=== PATIENT | male | born 1965 | race Caucasian/White ===

== ENCOUNTER → 2023-04-22 | Emergency (ER) | payer SELFPAY ==
[~2023-04-22] MED LIST: FLUORESCEIN SODIUM 1 MG/WRAP ONE; TETRACAINE HCL 0.5% 4ML OPTH ONE
--- OUTSIDE RECORDS SUMMARY | 2023-04-22 07:53 | XMS REPORT | Continuity of Care Document ---
Author Name Unknown Address [address] [facility] [address] th[address] Address [address] [facility] 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 Hand Name Role Phone Unavailable Unavailable Unavailable Encounters Start Date/Time End Date/Time Encounter Type Admission Type Attending Clinicians [facility] Care Department Encounter ID Source 2023-03-29 14:24:47 2023-03-29 14:24:47 Outpatient SFA [id number] [id number] Alfred Lama 2022-11-30 10:03:55 2022-11-30 10:03:55 Outpatient SFA [id number] [id number] Alfred Lama 2022-10-16 08:44:40 2022-10-16 08:44:40 Outpatient SFA [id number] [id number] Alfred Lama 2022-04-17 08:01:47 2022-04-17 08:01:47 Outpatient SFA [id number] [id number] Alfred Lama 2022-01-30 10:53:04 2022-01-30 10:53:04 Outpatient SFA SFA [id number] Alfred Lama Results Test Description Test Time Test Comments Results Result Co mments Source LIPID [id number] 04:13:15* Test Item Value Reference Range Interpretation Comme nts CHOLESTEROL (test code = 2210) 211 MG/DL <200 H TRIGLYCERIDES (test code = 2232) 187 MG/DL <150 H HDL CHOLESTEROL (test code = 2220) 39 MG/DL >39 L CALC LDL CHOL (test code = 2237) 140 MG/DL <100 H NOTE: CALCULATED LDL IS BASED ON CHRIS-PETTY METHOD WHICHINCLUDES ADJUSTABLE TRIGLYCERIDE:VLDL CHOLESTEROL RATIO.THIS FACTOR VARIES BY MEASURED TRIGLYCERIDE AND NON-HDLCHOLESTEROL CONCENTRATIONS WITH INCREASED CALCULATED LDL SEENIN HIGHER TRIGLYCERIDE OR LOWER NON-HDL SPECIMENS. FOR MOREINFORMATION, SEE CLIENT ANNOUNCEMENT AT [email or web address] RISK RATIO LDL/HDL (test code = 2238) 3.59 RATIO <3.55 H UNLESS OTHERW ISE INDICATED, ALL TESTING PERFORMED AT [facility], [facility]. [address] [place] [address] HIM SPECIALISTS: WINNIE CURRAN M.D. CLIA NUMBER [id number] [place]. [id number] VITAMIN D, 25 [id number] 05:49:23* Test Item Value Reference Range Interpretation Comme nts VITAMIN D, 25 OH (test code = 4958) 25 NG/ML SEE BELOW L NOTE: 25-HYDR OXYVITAMIN D ASSAY INCLUDES 25-HYDROXYVITAMIN D2 AND D3. METHODOLOGY IS CHEMILUMINESCENT IMMUNOASSAY. INTERPRETIVE RANGES PEDIATRIC (<17 YEARS) . . . . . . . . . . . NG/ML 20-100ADULT: INSUFFICIENT . . . . . . . . . . . . . . NG/ML <20 SUBOPTIMAL . . . . . . . . . . . . . . . NG/ML 20-29 OPTIMAL . . . . . . . . . . . . . . . . . NG/ML 30-100 UNLESS OTHERWISE INDICATED, [facility]. [address] [place] [address] HIM SPECIALISTS: MANDY MCCAIN M.D. CLIA NUMBER [id number] [place] [id number] LIPID [id number] 04:37:17* Test Item Value Reference Range Interpretation Comme nts CHOLESTEROL (test code = 2210) 188 MG/DL <200 TRIGLYCERIDES (test code = 2232) 89 MG/DL <150 HDL CHOLESTEROL (test code = 2220) 40 MG/DL >39 CALC LDL CHOL (test code = 2237) 129 MG/DL <100 H NOTE: CALCULATED LDL IS BASED ON CHRIS-PETTY METHOD WHICHINCLUDES ADJUSTABLE TRIGLYCERIDE:VLDL CHOLESTEROL RATIO.THIS FACTOR VARIES BY MEASURED TRIGLYCERIDE AND NON-HDLCHOLESTEROL CONCENTRATIONS WITH INCREASED CALCULATED LDL SEENIN HIGHER TRIGLYCERIDE OR LOWER NON-HDL SPECIMENS. FOR MOREINFORMATION, SEE CLIENT ANNOUNCEMENT AT [email or web address] /[email or web address] RISK RATIO LDL/HDL (test code = 2238) 3.23 RATIO <3.55 VITAMIN D, 25 [id number] 03:07:18* Test Item Value Reference Range Interpretation Comme nts VITAMIN D, 25 OH (test code = 4958) 21 NG/ML SEE BELOW L NOTE: 25-HYDR OXYVITAMIN D ASSAY INCLUDES 25-HYDROXYVITAMIN D2 AND D3. METHODOLOGY IS CHEMILUMINESCENT IMMUNOASSAY. INTERPRETIVE RANGES PEDIATRIC (<17 YEARS) . . . . . . . . . . . NG/ML 20-100ADULT: INSUFFICIENT . . . . . . . . . . . . . . NG/ML <20 SUBOPTIMAL . . . . . . . . . . . . . . . NG/ML 20-29 OPTIMAL . . . . . . . . . . . . . . . . . NG/ML 30-100 UNLESS OTHERWISE INDICATED, ALL [facility] [address] [place] [address] HIM SPECIALISTS: MANDY MCCAIN M.D. CLIA NUMBER [id number] [place]. [id number] CBC W/AUTO DIFF WITH [id number] 03:39:29* Test Item Value Reference Range Interpretation Comme nts WBC (test code = 1001) 11.3 K/UL 3.5-11.0 H RBC (test code = 1002) 4.81 M/UL 4.50-6.10 HEMOGLOBIN (test code = 1003) 14.5 G/DL 13.5-17.0 HEMATOCRIT (test code = 1004) 42.3 % 40.0-51.0 MCV (test code = 1005) 87.9 fL 80.0-99.0 MCH (test code = 1006) 30.1 PG 25.0-33.0 MCHC (test code = 1007) 34.3 G/DL 31.0-36.0 RDW (test code = 1038) 13.1 % 11.5-15.0 NEUTROPHILS (test code = 1008) 61.6 % LYMPHOCYTES (test code = 1010) 27.7 % MONOCYTES (test code = 1011) 8.0 % EOSINOPHILS (test code = 1012) 1.7 % BASOPHILS (test code = 1013) 0.6 % IMMATURE GRANULOCYTES (test code = 1036) 0.4 % NUCLEATED RBCS (test code = 1065) 0.0 /100 WBC'S See_Comment [Automated [employer] ge] The system which generated this result transmitted reference range: 0.0. The reference range was not used to interpret this result as normal/abnormal. PLATELET COUNT (test code = 1015) 250 K/UL 130-400 ABSOLUTE NEUTROPHILS (test code = 1066) 6.95 K/UL 1.50-7.50 ABSOLUTE LYMPHOCYTES (test code = 1067) 3.12 K/UL 1.00-4.00 ABSOLUTE MONOCYTES (test code = 1068) 0.90 K/UL 0.20-1.00 ABSOLUTE EOSINOPHILS (test code = 1040) 0.19 K/UL 0.00-0.50 ABSOLUTE BASOPHILS (test code = 1069) 0.07 K/UL 0.00-0.20 ABS IMMATURE GRANULOCYTES (test code = 1020) 0.05 K/UL 0.00-0.10 ABS NUCLEATED RBCS (test code = 74177) 0.00 K/UL 0.00-0.11 LIPID [id number] 03:14:59* Test Item Value Reference Range Interpretation Comme nts CHOLESTEROL (test code = 2210) 229 MG/DL <200 H TRIGLYCERIDES (test code = 2232) 177 MG/DL <150 H HDL CHOLESTEROL (test code = 2220) 39 MG/DL >39 L CALC LDL CHOL (test code = 2237) 157 MG/DL <100 H NOTE: CALCULATED LDL IS BASED ON CHRIS-PETTY METHOD WHICHINCLUDES ADJUSTABLE TRIGLYCERIDE:VLDL CHOLESTEROL RATIO.THIS FACTOR VARIES BY MEASURED TRIGLYCERIDE AND NON-HDLCHOLESTEROL CONCENTRATIONS WITH INCREASED CALCULATED LDL SEENIN HIGHER TRIGLYCERIDE OR LOWER NON-HDL SPECIMENS. FOR MOREINFORMATION, SEE CLIENT ANNOUNCEMENT AT [email or web address] RISK RATIO LDL/HDL (test code = 2238) 4.03 RATIO <3.55 H COMPREHENSIVE METABOLIC [id number] 03:14:59* Test Item Value Reference Range Interpretation Comme nts GLUCOSE (test code = 2217) 82 MG/DL 70-99 BUN (test code = 2208) 14 MG/DL 6-20 CREATININE (test code = 2214) 1.04 MG/DL 0.80-1.40 eGFR (2020 CKD-EPI) (test code = ) 84 ML/MIN/1.73 >60 CALC BUN/CREAT (test code = 2234) 13 RATIO 6-28 SODIUM (test code = 2230) 141 MEQ/L 133-146 POTASSIUM (test code = 2227) 4.6 MEQ/L 3.5-5.4 CHLORIDE (test code = 2214) 104 MEQ/L 95-107 CARBON DIOXIDE (test code = 2205) 24 MEQ/L 19-31 CALCIUM (test code = 2208) 9.8 MG/DL 8.5-10.5 PROTEIN, TOTAL (test code = 2228) 7.7 G/DL 6.1-8.3 ALBUMIN (test code = 2200) 4.5 G/DL 3.5-5.2 CALC GLOBULIN (test code = 2239) 3.2 G/DL 1.9-3.7 CALC A/G RATIO (test code = 2233) 1.4 RATIO 1.0-2.6 BILIRUBIN, TOTAL (test code = 2206) 0.3 MG/DL See_Comment [Automated me ssage] The system which generated this result transmitted reference range: <=1.2. The reference range was not used to interpret this result as normal/abnormal. ALKALINE PHOSPHATASE (test code = 2203) 94 U/L 40-123 AST (test code = 2217) 18 U/L 9-50 ALT (test code = 2218) 16 U/L 5-50 UNLESS OTHERWISE INDICATED, ALL TESTING PERFORMED [facility] [address] [place] [id number] HIM SPECIALISTS: Tommie SPEARSIA NUMBER [id number] [facility]. [id number]
--- NOTE | 2023-04-22 09:56 | ER ---
Nurse's Notes [facility] Name: Narciso Edwards Age: 58 yrs Sex: Male : 1965 Arrival Date: 04/22/2023 Time: 07:50 Bed 14 Private MD: Diagnosis: Retinal detachment with giant retinal tear, right eye Presentation: 04/22 08:01 Chief complaint: Patient states: started a week to 10 days ago , every time I back out iw of my driveway I had flashes of light on outer field of vision in right eye , 2 days ago he had a black line across bottom of visual field. Coronavirus screen: At this time, the client does not indicate any symptoms associated with coronavirus-19. Ebola Screen: Patient negative for fever greater than or equal to 101.5 degrees Fahrenheit, and additional compatible Ebola Virus Disease symptoms Patient denies exposure to infectious person. Patient denies travel to an Ebola-affected area in the 21 days before illness onset. No symptoms or risks identified at this time. Initial Sepsis Screen: Does the patient meet any 2 criteria? No. Patient's initial sepsis screen is negative. Does the patient have a suspected source of infection? No. Patient's initial sepsis screen is negative. Risk Assessment: Do you want to hurt yourself or someone else? Patient reports no desire to harm self or others. Onset of symptoms was April 12, 2023. 08:01 Method Of Arrival: Ambulatory iw 08:01 Acuity: NAIN 3 iw Historical: - Allergies: 08:03 No Known Allergies; iw - Home Meds: 08:03 amlodipine oral [Active]; iw - PMHx: 08:03 Hypertensive disorder; Hypercholesterolemia; iw - Immunization history:: Adult Immunizations not up to date. - Social history:: Smoking status: Patient/guardian denies using tobacco. Screenin:19 [facility] ED Fall Risk Assessment (Adult) History of falling in the last 3 months, ap3 including since admission No falls in past 3 months (0 pts). Abuse screen: Denies threats or abuse. Nutritional screening: No deficits noted. Tuberculosis screening: No symptoms or risk factors identified. Assessment: 08:18 General: Appears in no apparent distress. Behavior is cooperative, anxious. Pain: ap3 Denies pain. Neuro: Level of Consciousness is awake, alert, obeys commands, Oriented to person, place, time, situation. Cardiovascular: Patient's skin is warm and dry. Respiratory: Airway is patent Respiratory effort is even, unlabored, Respiratory pattern is regular, symmetrical. EENT: Reports black "floaters", black lines, and a "translucent black dome" in vision of right eye. Vital Signs: 08:01 BP 145 / 104; Pulse 89; Resp 16; Pulse Ox 99% on R/A; Weight 106.59 kg; Height 6 ft. 0 iw in. ; 10:18 BP 131 / 96; Pulse 85; Resp 16; Pulse Ox 99% ; Pain 0/10; cm10 08:01 Body Mass Index 31.87 (106.59 kg, 182.88 cm) iw 10:18 Pain Scale: Adult cm10 Visual Acuity: 08:28 Left Eye Visual acuity 20/200, ; Right Eye Visual acuity 20/30, ; Both Eyes Visual ap3 acuity 20/30; Without Lenses; ED Course: 07:53 Patient arrived in ED. ra3 07:56 Ad Stevens MD is Attending Physician. ec2 08:03 Triage completed. iw 08:04 Arm band placed on. iw 08:19 Patient has correct armband on for positive identification. Bed in low position. Call ap3 light in reach. Pulse ox on. NIBP on. 08:28 Avani Layton, JULIAN is Primary Nurse. ap3 08:36 Provider at bedside performing ultrasound of right eye. ap3 10:27 No provider procedures requiring assistance completed. Patient did not have IV access cm10 during this emergency room visit. 10:28 Provided Education on: ER process and procedures. . cm10 Administered Medications: 08:35 Drug: Tetracaine Ophthalmic Drops 0.5 % 1 drops Ophthalmic once {Note: by Dr. Stevens.} ap3 Route: Ophthalmic; Site: right eye; Medication: 08:19 VIS not applicable for this client. ap3 Outcome: 09:56 Discharge ordered by . ec2 10:27 Discharged to [facility] ER via POV cm10 10:27 Condition: good 10:27 Discharge instructions given to patient, Instructed on Driving to [facility] for further care. 10:28 Patient left the ED. cm10 Signatures: Carmen Starr RN RN Avani Layton RN RN ap3 Kellee Koehler RN RN cm10 Ad Stevens MD MD ec2 Carol Skinner ra3
--- NOTE | 2023-04-22 09:56 | EDPHYS ---
Physician Documentation [facility] Name: Narciso Edwards Age: 58 yrs Sex: Male : 1965 Arrival Date: 04/22/2023 Time: 07:50 Bed 14 Private MD: ED Physician Ad Stevens HPI: 04/22 08:12 This 58 yrs old Male presents to ER via Ambulatory with complaints of Eye ec2 Problem. 08:12 Patient arrives today due to concern for right eye visual field issues. States that he ec2 has been having issues with his eye for the past 10 days. States that he is having flashers and floaters, states that he also feels like curtain is drawn over his eye as he has some blackness in a portion of the upper eye. Patient reports no trauma, history of right eye cataract surgery, denies any redness or discharge, denies any pain of the globe.. Historical: - Allergies: 08:03 No Known Allergies; iw - Home Meds: 08:03 amlodipine oral [Active]; iw - PMHx: 08:03 Hypertensive disorder; Hypercholesterolemia; iw - Immunization history:: Adult Immunizations not up to date. - Social history:: Smoking status: Patient/guardian denies using tobacco. ROS: 08:12 Constitutional: as per hpi ec2 Exam: 08:12 Constitutional: GEN: NAD Head: atraumatic Eyes: EOMI, no erythema or discharge ec2 appreciated, intact pupillary response to direct and consensual light Ears: External ears are normal. CV: regular rate LUNGS: no respiratory distress ABD: non-distended SKIN: no evidence of rashes MSK: no evidence of trauma NEURO: moves all extremities equally Vital Signs: 08:01 BP 145 / 104; Pulse 89; Resp 16; Pulse Ox 99% on R/A; Weight 106.59 kg; Height 6 ft. 0 iw in. ; 10:18 BP 131 / 96; Pulse 85; Resp 16; Pulse Ox 99% ; Pain 0/10; cm10 08:01 Body Mass Index 31.87 (106.59 kg, 182.88 cm) iw 10:18 Pain Scale: Adult cm10 Visual Acuity: 08:28 Left Eye Visual acuity 20/200, ; Right Eye Visual acuity 20/30, ; Both Eyes Visual ap3 acuity 20/30; Without Lenses; MDM: 08:05 Patient medically screened. ec2 08:13 Data reviewed: vital signs. ED course: Patient arrives today for evaluation of right ec2 eye issues. Examination remarkable for eye findings as noted above. Will obtain visual acuities, will obtain eye pressures, will also perform ultrasound of the eye to evaluate for pathology. Currently considering process such as vitreous hemorrhage, retinal detachment, low suspicion for glaucoma. . 08:58 ED course: I performed ocular pressures which showed a pressure at 11 on the right ec2 side, I also performed an ultrasound of the globe that showed concern for retinal detachment, no evidence of vitreous hemorrhage.. 09:00 ED course: My concern for retinal attachment, will attempt to transfer the patient, ec2 while attempting to transfer the patient I will also reach out to our local statistical assistant.. 09:42 ED course: [facility] ophthalmology declined stating this does not require emergent ec2 transfer. I will continue attempting to transfer the patient.. 09:54 ED course: I discussed the case with on-call ophthalmology at [facility] who agreed ec2 with my concern, recommended immediate transfer and to keep n.p.o. for possible intervention today. I updated the patient regarding the plan, he will go via POV under the care of his .. 09:57 ED course: I discussed the case with the fellow at [facility].. ec2 04/22 08:14 Order name: Eye Tray; Complete Time: 08:28 ec2 04/22 08:14 Order name: Fluoresene Opth strip; Complete Time: :28 ec2 04/22 08:14 Order name: Visual Acuity; Complete Time: 08:28 ec2 Administered Medications: 08:35 Drug: Tetracaine Ophthalmic Drops 0.5 % 1 drops Ophthalmic once {Note: by Dr. Stevens.} ap3 Route: Ophthalmic; Site: right eye; Disposition Summary: 04/22/23 09:56 Discharge Ordered Condition: Stable ec2 Diagnosis - Retinal detachment with giant retinal tear, right eye ec2 Followup: ec2 - With: Emergency Department - When: Upon discharge from the Emergency Department - Reason: [facility] Discharge Instructions: - Discharge Summary Sheet ec2 - Retinal Detachment ec2 Forms: - SBAR form em1 - Medication Reconciliation Form ec2 - Thank You Letter ec2 - Antibiotic Education ec2 - Prescription Opioid Use ec2 - Patient Portal Instructions ec2 - Leadership Thank You Letter ec2 Signatures: Carmen Starr RN Avani Baird RN RN ap3 Ad Stevens MD MD ec2 Corrections: (The following items were deleted from the chart) 09:27 09:26 ED course: My concern for retinal attachment, will attempt to transfer the ec2 patient, while attempting to transfer the patient I will also reach out to our local statistical assistant.. ec2
[2023-04-22 11:15] VITALS: BP 131/96; O2SAT 99
== END ==
LOC: ER 07:50
DX: H33.031 Retinal detachment with giant retinal tear, right eye (principal); I10 Essential (primary) hypertension
CPT/HCPCS: 99283

== ENCOUNTER 2024-01-11 12:34 | Emergency (ER) | payer SELFPAY ==
[2024-01-11] MEDS ORDERED: ETOMIDATE 20 MG/10 ML VIAL IV ONE ×2 (12:35→13:22)
[2024-01-11] MEDS ORDERED: ONDANSETRON 4 MG/2 ML VIAL ONE (12:38)
[2024-01-11] MEDS ORDERED: HYDROMORPHONE HCL 1 MG/ML INJ ONE ×2 (12:38→12:51)
--- OUTSIDE RECORDS SUMMARY | 2024-01-11 12:39 | XMS REPORT | Continuity of Care Document ---
Author Name Unknown Address [address] [facility] [place] [address] [facility] thconnect Address [address] [facility] [place] [address] Care Team Providers Care Teachers' Aide Name Role Phone Ochoa CORINE [facility] Primary Care Physician SEBASTIEN MATA Attending Clinician Unavailable Sebastien Mata MD Attending Clinician [phone] RUDI GUSTAFSON Attending Clinician Unavailable Rudi Gustafson MD Attending Clinician [phone] RUDI GUSTAFSON Admitting Clinician Unavailable Rudi Gustafson MD Admitting Clinician [phone] Problems Condition Name Condition Details Condition Category Status Onset Date Resolution Date Last Treatment Date Treating Clinician Comments Source Right retinal detachment Right retinal detachment Disease Active 2022-05 00:00: 00 [facility] Obesity (BMI 30-39.9) Obesity (BMI 30-39.9) Disease Active 2022-05 00:00: 00 [facility] GI bleed GI bleed Disease Active 11-20 00:00: 00 [facility] Allergies, Adverse Reactions, Alerts Allergy Name Allergy Type Status Severity Reaction(s) Onset Date Inactive Date Treating Clinician Comments Source NO KNOWN ALLERGIE S Drug Class Active [facility] Social History Social Habit Start Date Stop Date Quantity Comments Source [facility] of tobacco use Cigarette Smoker [facility] History of Social function 2023-07-13 00:00:00 2023-07-13 00:00:00 [facility] Tobacco use and exposure 2021-11-21 00:00:00 2021-11-21 00:00:00 User of smokeless tobacco [facility] Sex assigned at 1965 00:00:00 1965 00:00:00 [facility] Smoking Status Start Date Stop Date Source Smokes tobacco daily 2021-11-21 00:00:00 [facility] Medications Ordered Medication Name Filled Medication Name Start Date Stop Date Current Medication? Ordering Clinician Indication Dosage Frequency Signature (SIG) Comments Components Source amlodipine 10 mg tablet 10-27 00:00: 00 Yes 1mg Alfred Lama ketorolac 0.5 % ophthalmic solution 09-13 00:00: 00 Yes [id number] 1[drp] Place 1 Drop in right eye in the morning and 1 Drop at noon and 1 Drop in the evening. [facility] ketorolac 0.5 % ophthalmic solution 07-26 00:00: 00 09-13 00:00 :00 No 1[drp] Place 1 Drop in right eye 4 (four) times daily. [facility] ketorolac 0.5 % ophthalmic solution 07-15 00:00: 00 Yes 1[drp] Place 1 Drop in right eye 4 (four) times daily. [facility] ketorolac 0.5 % ophthalmic solution 07-12 00:00: 00 09-13 00:00 :00 No [id number] 1[drp] Place 1 Drop in right eye 4 (four) times daily. [facility] TAKE 1 TABLET DAILY. 2022-05 00:00: 00 Yes 10 Alfred Lama TAKE 1 CAPSULE TWICE DAILY. 2022-05 00:00: 00 Yes 300 Alfred Lama lactated ringers IV infusion 1,000 mL 2022-05 04:30: 00 Yes 1000mL at 75 mL/hr, 1,000 mL, IV Infusion, CONTINUOUS , Starting on Brandy 04/22/23 at 2230, Until Discontinu ed, Routine, PACU [facility] HYDROcodone -acetaminop hen (NORCO 5) 5-325 mg tablet 1 tablet 2022-05 04:30: 00 04-23 04:35 :00 No 1{tbl} 1 tablet, Oral, ONCE, 1 dose, On Wed04/22/23 at 2230, Routine, PACU [facility] HYDROcodone -acetaminop hen (NORCO 5) 5-325 mg tablet 1 tablet 2022-05 04:16: 11 Yes 1{tbl} 1 tablet, Oral, PRN, 1 dose, Starting on Wed04/22/23 at 2216, Until Discontinu ed, Routine, Pain (scale 7-10), [facility] ibuprofen (MOTRIN IB) tablet 200 mg 2022-05 04:16: 11 Yes 200mg 200 mg, Oral, PRN, 1 dose, Starting on Brandy 04/22/23 at 2216, Until Discontinu ed, Routine, Pain (scale 4-6), [facility] acetaminoph en (TYLENOL) tablet 500 mg 2022-05 04:16: 11 Yes 500mg 500 mg, Oral, PRN, 1 dose, Starting on Wed04/22/23 at 2216, Until Discontinu ed, Routine, Pain (scale 1-3), [facility] HYDROmorpho ne (DILAUDID) injection 0.2 mg 2022-05 04:16: 06 Yes .2mg 0.2 mg, Slow IV Push, Q5MIN PRN, 10 doses, Starting on Wed04/22/23 at 2216, Until Discontinu ed, Routine, Pain (scale 7-10), PACU
Us e approved by (Faculty): PACU USE -ANESTHESI A SERVICE-HY DROMORPHON E INJECTIONS [facility] FENTanyl PF (SUBLIMAZE (PF)) injection 25 mcg 2022-05 04:16: 06 Yes 25ug 25 mcg, Slow IV Push, Q5MIN PRN, 4 doses, Starting on Wed04/22/23 at 2216, Until Discontinu ed, Routine, Pain (scale 4-6), PACU [facility] proMETHazin e (PHENERGAN) 12.5 mg in NS 50 mL IV piggyback (CNR) 2022-05 04:16: 06 Yes 12.5mg 12.5 mg, IV Piggyback, at 200 mL/hr Administer over 15 Minutes, PRN, 1 dose, Starting on Brandy 04/22/23 at 6, Until Discontinu ed, Routine, Nausea and Vomiting (N/V), PACU [facility] gentamicin in NS 80 mg/100 mL RTU IV piggyback 2022-05 02:49: 00 04-23 04:15 :10 No CONTINUOUS PRN, Starting on Brandy 04/22/23 at 2048, Until Brandy 04/22/23 at 2214, Administer over 30 Minutes, Intra-op [facility] VISCOAT 0.5 ml (VISCOAT) 4-3 % (40-30 mg/mL) injection 2022-05 02:48: 00 04-23 04:15 :10 No PRN, Starting on Brandy 04/22/23 at 2047, Until Brandy 04/22/23 at 2214, Routine, Intra-op [facility] triamcinolo ne acetonide (KENALOG) injection 2022-05 02:48: 00 04-23 04:15 :10 No PRN, Starting on Brandy 04/22/23 at 2047, Until Brandy 04/22/23 at 2214, Routine, Intra-op [facility] povidone-io dine (BETADINE) 5 % ophthalmic drops 2022-05 02:48: 00 04-23 04:15 :10 No PRN, Starting on Brandy 04/22/23 at 2047, Until Brandy 04/22/23 at 2214, Routine, Intra-op [facility] neomycin-po lymyxin-dex amethasone (MAXITROL) 3.5 mg/g-10,000 unit/g-0.1 % ophthalmic ointment 2022-05 02:48: 00 04-23 04:15 :10 No PRN, Starting on Brandy 04/22/23 at 2048, Until Brandy 04/22/23 at 2215, Routine, Intra-op [facility] methylpredn isolone sod succ (SOLU-MEDRO L) injection 2022-05 02:47: 00 04-23 04:15 :10 No PRN, Starting on Brandy 04/22/23 at 2047, Until Brandy 04/22/23 at 2215, Routine, Intra-op [facility] Hyaluronida se, Human Recomb. (HYLENEX) 150 Units, bupivacaine (preserv free) 0.5% (SENSORCAIN E MPF) 5 mL, lidocaine PF 2% (XYLOCAINE- MPF) 5 mL injection 2022-05 02:47: 00 04-23 04:15 :10 No PRN, Starting on Brandy 04/22/23 at 7, Intra-op [facility] EPINEPHrine (PF) 1:1,000 (1 mg/mL) (ADRENALIN (PF)) injection 2022-05 02:47: 00 04-23 04:15 :10 No PRN, Starting on Brandy 04/22/23 at 2047, Until Brandy 04/22/23 at 2215, Routine, Intra-op [facility] ceFAZolin (ANCEF) injection 2022-05 02:46: 00 04-23 04:15 :10 No PRN, Starting on Brandy 04/22/23 at 2046, Until Brandy 04/22/23 at 221, CHERYL, Intra-op [facility] balanced salt soln no.2 irrig. (BSS) ophthalmic solution 2022-05 02:46: 00 04-23 04:15 :10 No PRN, Starting on Brandy 04/22/23 at 2046, Until Brandy 04/22/23 at 221, Routine, Intra-op [facility] balanced salt soln no.1 irrig. (BSS PLUS) ophthalmic solution 2022-05 02:45: 00 04-23 04:15 :10 No PRN, Starting on Brandy 04/22/23 at 2045, Until Brandy 04/22/23 at 2215, Routine, Intra-op [facility] gabapentin 300 mg capsule 2022-05 23:32: 29 Yes 300mg Take 300 mg by mouth in the morning and 300 mg at noon and 300 mg in the evening. [facility] moxifloxaci n (VIGAMOX) 0.5 % ophthalmic drops 2022-05 00:00: 00 Yes [id number] 1[drp] Place 1 Drop in right eye 4 (four) times daily. [facility] prednisoLON E acetate 1 % ophthalmic suspension drops 2022-05 00:00: 00 Yes [id number] 1[drp] Place 1 Drop in right eye 4 (four) times daily. [facility] TAKE DIRECTED. 2022-05 00:00: 00 Yes Alfred Lama TAKE 10 ML 4-6 HOURS NEEDED -31 00:00: 00 04-27 00:00 :00 No [id number] Alfred Lama TAKE 1 TABLET AT BEDTIME. 30 00:00: 00 04-27 00:00 :00 No 10 Alfred Lama TAKE 1 CAPSULE TWICE DAILY. -16 00:00: 00 Yes 300 Alfred Lama TAKE 1 TABLET DAILY. -16 00:00: 00 Yes 10 Alfred Lama TAKE 1 CAPSULE 3 TIMES DAILY. 3-13 00:00: 00 04-27 00:00 :00 No 300 Alfred Lama TAKE 1 TABLET DAILY. 2021-05 2-16 00:00: 00 04-27 00:00 :00 No 10 Alfred Lama TAKE 1 TABLET DAILY. 2021-05 2-15 00:00: 00 04-27 00:00 :00 No Alfred Lama TAKE 1 CAPSULE 3 TIMES DAILY. 2021-05 2-15 00:00: 00 04-27 00:00 :00 No Alfred Lama peg-electro lyte soln 236-22.74-6 .74 -5.86 gram solution 11-21 00:00: 00 Yes [id number] Take as directed before colonoscop y [facility] Dose Unknown -14 00:00: 00 Yes Alfred Lama Dose Unknown - 00:00: 00 Yes Alfred Lama TAKE 1 CAPSULE 3 TIMES DAILY. - 00:00: 00 Yes Alfred Lama Dose Unknown -17 00:00: 00 Yes Alfred Lama Dose Unknown - 00:00: 00 Yes Alfred Lama Dose Unknown 6- 00:00: 00 Yes Alfred Lama celecoxib 200 mg capsule 08-10 00:00: 00 Yes 1mg Alfred Lama gabapentin 300 mg capsule 08-10 00:00: 00 Yes 1mg Alfred Lama tizanidine 4 mg capsule -10 00:00: 00 Yes 1mg Alfred Lama Vital Signs Vital Name Observation Time Observation Value Comments S ource Body weight 2023-07-13 19:14:00 106.595 kg [facility] BMI 2023-07-13 19:14:00 31.87 kg/m2 [facility] Body weight 2023-04-30 20:24:00 106.595 kg [facility] BMI 2023-04-30 20:24:00 31.87 kg/m2 [facility] Body weight 2023-04-23 19:49:00 106.595 kg [facility] BMI 2023-04-23 19:49:00 31.87 kg/m2 [facility] Systolic blood pressure 2023-04-23 05:15:00 130 mm[Hg] [place] [facility] Diastolic blood pressure 2023-04-23 05:15:00 89 mm[Hg] [place] [facility] Heart rate 2023-04-23 05:15:00 86 /min [facility] Respiratory rate 2023-04-23 05:15:00 16 /min [facility] Oxygen saturation in Arterial blood by Pulse oximetry 2023-04-23 05:15:00 95 /min [facility] Body temperature 2023-04-23 04:15:00 36.5 Noy [facility] Body weight 2023-04-22 18:31:00 106.595 kg [facility] BMI 2023-04-22 18:31:00 31.87 kg/m2 [facility] Systolic blood pressure 2023-04-23 05:15:00 130 mm[Hg] [facility] Diastolic blood pressure 2023-04-23 05:15:00 89 mm[Hg] [facility] Heart rate 2023-04-23 05:15:00 86 /min [facility] Respiratory rate 2023-04-23 05:15:00 16 /min [facility] Oxygen saturation in Arterial blood by Pulse oximetry 2023-04-23 05:15:00 95 /min [facility] Body temperature 2023-04-23 04:15:00 36.5 Noy [facility] Body weight 2023-04-22 18:31:00 106.595 kg [facility] BMI 2023-04-22 18:31:00 31.87 kg/m2 [facility] BP Systolic 2023-10-28 17:58:00 Step hen F Kelby BP Diastolic 2023-10-28 17:58:00 Jeffery phen F Kelby Weight Measured 2023-10-28 17:58:00 Alfred Sarabjit Lama Height Measured 2023-10-28 17:58:00 Alfred Sarabjit Lama Body Temperature 2023-10-28 17:58:00 Alfred F Kelby Heart Rate 2023-10-28 17:58:00 Zoraida en F Kelby Respiratory Rate 2023-10-28 17:58:00 Alfred Sarabjit Lama BP Systolic 2023-04-24 09:21:00 142 mm[Hg] Step hen F Kelby BP Diastolic 2023-04-24 09:21:00 87 mm[Hg] Jeffery phen Sarabjit Lama Weight Measured 2023-04-24 09:21:00 241.20 pounds Alfredhaile Lama Height Measured 2023-04-24 09:21:00 70.00 inches Alfrdehaile Lama Body Temperature 2023-04-24 09:21:00 98.40 degrees Alfred F Kelby Heart Rate 2023-04-24 09:21:00 69.00 /min Zoraida en F Kelby Respiratory Rate 2023-04-24 09:21:00 Alfred F Kelby BP Systolic 2023-03-29 14:33:00 139 mm[Hg] Step hen F Kelby BP Diastolic 2023-03-29 14:33:00 84 mm[Hg] Jeffery phen F Kelby Weight Measured 2023-03-29 14:33:00 244.00 pounds Alfred F Kelby Height Measured 2023-03-29 14:33:00 70.00 inches Alfred F Kelby Body Temperature 2023-03-29 14:33:00 98.60 degrees Alfred F Kelby Heart Rate 2023-03-29 14:33:00 89.00 /min Zoraida en F Kelby Respiratory Rate 2023-03-29 14:33:00 19.00 /min Alfred F Kelby BP Systolic 2022-11-30 10:09:00 124 mm[Hg] Step hen F Kelby BP Diastolic 2022-11-30 10:09:00 82 mm[Hg] Jeffery phen F Kelby Weight Measured 2022-11-30 10:09:00 239.40 pounds Alfred F Kelby Height Measured 2022-11-30 10:09:00 70.00 inches Alfred F Kelby Body Temperature 2022-11-30 10:09:00 98.20 degrees Alfred F Kelby Heart Rate 2022-11-30 10:09:00 92.00 /min Zoraida en F Eklby Respiratory Rate 2022-11-30 10:09:00 18.00 /min Alfred F Kelby BP Systolic 2022-10-16 08:50:00 138 mm[Hg] Step hen F Kelby BP Diastolic 2022-10-16 08:50:00 80 mm[Hg] Jeffery phen F Kelby Weight Measured 2022-10-16 08:50:00 243.80 pounds Alfred F Kelby Height Measured 2022-10-16 08:50:00 70.00 inches Alfred F Kelby Body Temperature 2022-10-16 08:50:00 98.30 degrees Alfred F Kelby Heart Rate 2022-10-16 08:50:00 75.00 /min Zoraida en F Kelby Respiratory Rate 2022-10-16 08:50:00 18.00 /min Alfred F Kelby BP Systolic 2022-04-17 08:12:00 127 mm[Hg] Step hen F Kelby BP Diastolic 2022-04-17 08:12:00 85 mm[Hg] Jeffery phen F Kelby Weight Measured 2022-04-17 08:12:00 218.20 pounds Alfred F Kelby Height Measured 2022-04-17 08:12:00 70.00 inches Alfred F Kelby Body Temperature 2022-04-17 08:12:00 98.60 degrees Alfred F Kelby Heart Rate 2022-04-17 08:12:00 82.00 /min Zoraida en F Kelby Respiratory Rate 2022-04-17 08:12:00 18.00 /min Alfred F Kelby BP Systolic 2022-01-30 11:07:00 126 mm[Hg] Step hen F Kelby BP Diastolic 2022-01-30 11:07:00 87 mm[Hg] Jeffery phen F Kelby Weight Measured 2022-01-30 11:07:00 215.00 pounds Alfred F Kelby Height Measured 2022-01-30 11:07:00 70.00 inches Alfred F Kelby Body Temperature 2022-01-30 11:07:00 98.20 degrees Alfred F Kelby Heart Rate 2022-01-30 11:07:00 95.00 /min Zoraida en F Kelby Respiratory Rate 2022-01-30 11:07:00 18.00 /min Alfred F Kelby BP Systolic 2022-01-30 10:21:00 189 mm[Hg] Step hen F Kelby BP Diastolic 2022-01-30 10:21:00 128 mm[Hg] Jeffery phen F Kelby Weight Measured 2022-01-30 10:21:00 280.80 pounds Alfred F Kelby Height Measured 2022-01-30 10:21:00 70.00 inches Alfred F Kelby Body Temperature 2022-01-30 10:21:00 98.00 degrees Alfred F Kelby Heart Rate 2022-01-30 10:21:00 92.00 /min Zoraida en F Kelby Respiratory Rate 2022-01-30 10:21:00 Alfred F Kelby BP Systolic 2022-01-23 11:15:00 136 mm[Hg] Step hen F Kelby BP Diastolic 2022-01-23 11:15:00 93 mm[Hg] Jeffery phen F Kelby Weight Measured 2022-01-23 11:15:00 216.40 pounds Alfred F Kelby Height Measured 2022-01-23 11:15:00 70.00 inches Alfred F Kelby Body Temperature 2022-01-23 11:15:00 98.30 degrees Alfred F Kelby Heart Rate 2022-01-23 11:15:00 92.00 /min Zoraida en F Kelby Respiratory Rate 2022-01-23 11:15:00 16.00 /min Alfred F Kebly BP Systolic 2022-01-16 10:40:00 142 mm[Hg] Step hen F Kelby BP Diastolic 2022-01-16 10:40:00 100 mm[Hg] Jeffery phen F Kelby Weight Measured 2022-01-16 10:40:00 216.00 pounds Alfred F Kelby Height Measured 2022-01-16 10:40:00 70.00 inches Alfred Lama Body Temperature 2022-01-16 10:40:00 98.00 degrees Alfred F Kelby Heart Rate 2022-01-16 10:40:00 92.00 /min Zoraida en F Kelby Respiratory Rate 2022-01-16 10:40:00 18.00 /min Alfred Sarabjit Lama Procedures Procedure Date / Time Performed Performing Clinician Source OCT, RETINA - OU - BOTH EYES 2023-09-14 19:45:58 Sebastien Mata [facility] OCT, RETINA - OU - BOTH EYES 2023-07-14 00:12:32 Sebastien Mata [facility] OCT, RETINA - OU - BOTH EYES 2023-05-28 22:27:00 Sebastien Mata [facility] PARS PLANA VITRECTOMY 2023-04-23 02:02:00 Kaylyn Mata [facility] ENDOLASER PHOTOCOAGULATION 2023-04-23 02:02:00 Sebastien Mata [facility] SCLERAL BUCKLE PLACEMENT 2023-04-23 02:02:00 Jb Mata [facility] FLUID/AIR/GAS EXCHANGE 2023-04-23 02:02:00 Donnie Mata [facility] CONSENT/REFUSAL FOR DIAGNOSIS AND TREATMENT 2023-04-22 18:25:32 Doctor Unassigned, [place] [facility] CONSENT/REFUSAL FOR DIAGNOSIS AND TREATMENT 2023-04-22 18:25:32 Doctor Unassigned, [place] [facility] Encounters Start Date/Time End Date/Time Encounter Type Admission Type Attending [facility] Care Department Encounter ID Source 2024-01-11 13:45:00 2024-01-11 13:45:00 Outpatient SEBASTIEN FRANKLIN [facility] [id number] [facility] 2023-11-23 07:59:37 2023-11-23 07:59:37 Outpatient S[facility] [id number] Alfred Lama 2023-10-28 17:57:56 2023-10-28 17:57:56 Outpatient [facility] [id number] Alfred Lama 2023-10-28 00:00:00 2023-10-28 00:00:00 Outpatient Visit [facility] [id number] Alfred Lama 2023-09-14 13:45:00 2023-09-14 14:55:39 Outpatient SEBASTIEN FRANKLIN [facility] [id number] [facility] 2023-09-14 13:45:00 2023-09-14 14:55:39 Office Visit Sebastien Mata [facility] .840.114 350.1.13.10 [id number] [id number] [facility] 2023-07-15 00:00:00 2023-07-15 00:00:00 Telephone Sebastien Mata [facility] 1.840.114 350.1.13.10 4.2.7.2.686 [id number] [facility] 2023-07-13 14:00:00 2023-07-13 16:09:46 Outpatient SEBASTIEN FRANKLIN [facility] [id number] [facility] 2023-07-13 14:00:00 2023-07-13 16:09:46 Office Visit Sebastien Mata [facility] 1.114 350.1.13.10 4.2.7.2.686 [id number] [facility] 2023-05-28 15:00:00 2023-05-28 16:39:26 Outpatient R SEBASTIEN MATA [facility] [id number] [facility] 2023-05-28 15:00:00 2023-05-28 16:39:26 Office Visit Sebastien Mata [facility] 1.114 350.1.13.10 4.2.7.2.686 [id number] [facility] 2023-04-30 14:15:00 2023-04-30 15:26:51 Outpatient R SEBASTIEN MATA [facility] [id number] [facility] 2023-04-30 14:15:00 2023-04-30 15:26:51 Office Visit Sebastien Mata [facility] AND [facility] 1.114 350.1.13.10 4.2.7.2.686 [id number] [facility] 2023-04-24 09:11:44 2023-04-24 09:11:44 Outpatient CHRISTIANO [facility] [id number] Alfred Lama 2023-04-23 13:30:00 2023-04-23 14:30:59 Outpatient R SEBASTIEN MATA [facility] [id number] [facility] 2023-04-23 13:30:00 2023-04-23 14:30:59 Office Visit Sebastien Mata [facility] 1.114 350.1.13.10 4.2.7.2.686 [id number] [facility] 2023-04-22 19:30:00 2023-04-22 23:45:00 Surgery Sebastien Mata [facility] 1.2.840.114 350.1.13.10 4.2.7.2.686 [id number] [facility] 2023-04-22 12:32:00 2023-04-22 23:30:00 Outpatient X RUDI GUSTAFSON [facility] [id number] [facility] 2023-04-22 12:32:00 2023-04-22 23:30:00 Emergency [facility] 1.2.840.114 350.1.13.10 4.2.7.2.686 [id number] [facility] 2023-03-29 14:24:47 2023-03-29 14:24:47 Outpatient [facility] [id number] Alfred Lama 2022-11-30 10:03:55 2022-11-30 10:03:55 Outpatient [facility] [id number] Alfred Lama 2022-10-16 08:44:40 2022-10-16 08:44:40 Outpatient [facility] [id number] Alfred Lama 2022-04-17 08:01:47 2022-04-17 08:01:47 Outpatient [facility] SFA [id number] Alfred Lama 2022-01-30 10:53:04 2022-01-30 10:53:04 Outpatient [facility] SFA [id number] Alfred Lama Results Test Description Test Time Test Comments Results Result Co mments Source COMPREHENSIVE METABOLIC [id number] 05:23:01* Test Item Value Reference Range Interpretation Comme nts GLUCOSE (test code = 2217) 101 MG/DL 70-99 H BUN (test code = 2208) 14 MG/DL 6-20 CREATININE (test code = 2214) 1.01 MG/DL 0.80-1.40 eGFR (2020 CKD-EPI) (test code = ) 86 ML/MIN/1.73 >60 CALC BUN/CREAT (test code = 2234) 14 RATIO 6-28 SODIUM (test code = 2230) 139 MEQ/L 133-146 POTASSIUM (test code = 2227) 4.8 MEQ/L 3.5-5.4 CHLORIDE (test code = 2214) 104 MEQ/L 95-107 CARBON DIOXIDE (test code = 2205) 23 MEQ/L 19-31 CALCIUM (test code = 2208) 9.4 MG/DL 8.5-10.5 PROTEIN, TOTAL (test code = 2228) 7.3 G/DL 6.1-8.3 ALBUMIN (test code = 2200) 4.3 G/DL 3.5-5.2 CALC GLOBULIN (test code = 2239) 3.0 G/DL 1.9-3.7 CALC A/G RATIO (test code = 2233) 1.4 RATIO 1.0-2.6 BILIRUBIN, TOTAL (test code = 2206) 0.3 MG/DL <=1.2 ALKALINE PHOSPHATASE (test code = 2203) 104 U/L 40-123 AST (test code = 2217) 16 U/L 9-50 ALT (test code = 2218) 20 U/L 5-50 UNLESS OTHERWISE INDICATED, ALL TESTING PERFORMED AT [facility] [address] [place] [address] BAND SCROLL SAW OPERATOR: WINNIE CURRAN M.D. CLIA NUMBER [id number] [facility] [place]. [id number] LIPID [id number] 01:26:14* Test Item Value Reference Range Interpretation Comme nts CHOLESTEROL (test code = 2209) 197 MG/DL <200 TRIGLYCERIDES (test code = 2231) 120 MG/DL <150 HDL CHOLESTEROL (test code = 2219) 41 MG/DL >39 CALC LDL CHOL (test code = 2236) 133 MG/DL <100 H NOTE: CALCULATED LDL IS BASED ON CHRIS-PETTY METHOD WHICHINCLUDES ADJUSTABLE TRIGLYCERIDE:VLDL CHOLESTEROL RATIO.THIS FACTOR VARIES BY MEASURED TRIGLYCERIDE AND NON-HDLCHOLESTEROL CONCENTRATIONS WITH INCREASED CALCULATED LDL SEENIN HIGHER TRIGLYCERIDE OR LOWER NON-HDL SPECIMENS. FOR MOREINFORMATION, SEE CLIENT ANNOUNCEMENT AT [email or web address] RISK RATIO LDL/HDL (test code = 2238) 3.24 RATIO <3.55 COMPREHENSIVE METABOLIC [id number] 01:26:14* Test Item Value Reference Range Interpretation Comme nts GLUCOSE (test code = 2217) 95 MG/DL 70-99 BUN (test code = 2208) 12 MG/DL 6-20 CREATININE (test code = 2214) 1.05 MG/DL 0.80-1.40 eGFR (2020 CKD-EPI) (test code = 36664) 82 ML/MIN/1.73 >60 CALC BUN/CREAT (test code = 2235) 11 RATIO 6-28 SODIUM (test code = 2231) 140 MEQ/L 133-146 POTASSIUM (test code = 2228) 4.0 MEQ/L 3.5-5.4 CHLORIDE (test code = 2215) 104 MEQ/L 95-107 CARBON DIOXIDE (test code = 2206) 23 MEQ/L 19-31 CALCIUM (test code = 2209) 9.3 MG/DL 8.5-10.5 PROTEIN, TOTAL (test code = 2229) 7.4 G/DL 6.1-8.3 ALBUMIN (test code = 2201) 4.4 G/DL 3.5-5.2 CALC GLOBULIN (test code = 2240) 3.0 G/DL 1.9-3.7 CALC A/G RATIO (test code = 2234) 1.5 RATIO 1.0-2.6 BILIRUBIN, TOTAL (test code = 2207) 0.3 MG/DL <=1.2 ALKALINE PHOSPHATASE (test code = 2204) 100 U/L 40-123 AST (test code = 2218) 12 U/L 9-50 ALT (test code = 2219) 13 U/L 5-50 UNLESS OTHERWISE INDICATED, ALL TESTING PERFORMED AT [facility] [address] [place] [id number] BAND SCROLL SAW OPERATOR: WINNIE CURRAN M.D. CLIA NUMBER [id number] [facility] [place]. [id number] LIPID [id number] 00:00:00* Test Item Value Reference Range Interpretation Comme nts CHOLESTEROL (test code = 2210) 197 MG/DL TRIGLYCERIDES (test code = 2232) 120 MG/DL HDL CHOLESTEROL (test code = 2220) 41 MG/DL CALC LDL CHOL (test code = 2237) 133 MG/DL RISK RATIO LDL/HDL (test cod e = 2238) 3.24 RATIO Alfred LamaCOMPREHENSIVE METABOLIC [id number] 00:00:00* Test Item Value Reference Range Interpretation Comme nts GLUCOSE (test code = 2217) 95 MG/DL BUN (test code = 2208) 12 MG/DL CREATININE (test code = 2214) 1.05 MG/DL eGFR (2020 CKD-EPI) (test co de = 17514) 82 ML/MIN/1.73 CALC BUN/CREAT (test code = 2235) 11 RATIO SODIUM (test code = 2231) 140 MEQ/L POTASSIUM (test code = 2228) 4.0 MEQ/L CHLORIDE (test code = 2215) 104 MEQ/L CARBON DIOXIDE (test code = 2206) 23 MEQ/L CALCIUM (test code = 2209) 9.3 MG/DL PROTEIN, TOTAL (test code = 2229) 7.4 G/DL ALBUMIN (test code = 2201) 4.4 G/DL CALC GLOBULIN (test code = 2240) 3.0 G/DL CALC A/G RATIO (test code = 2234) 1.5 RATIO BILIRUBIN, TOTAL (test code = 2207) 0.3 MG/DL ALKALINE PHOSPHATASE (test code = 2204) 100 U/L AST (test code = 2218) 12 U/L ALT (test code = 2219) 13 U/L Alfred LamaCOMPREHENSIVE METABOLIC [id number] 04:13:15* Test Item Value Reference Range Interpretation Comme nts GLUCOSE (test code = 2217) 92 MG/DL 70-99 BUN (test code = 2208) 11 MG/DL 6-20 CREATININE (test code = 2214) 0.99 MG/DL 0.80-1.40 eGFR (2020 CKD-EPI) (test code = 21579) 89 ML/MIN/1.73 >60 CALC BUN/CREAT (test code = 2235) 11 RATIO 6-28 SODIUM (test code = 2231) 140 MEQ/L 133-146 POTASSIUM (test code = 2228) 4.4 MEQ/L 3.5-5.4 CHLORIDE (test code = 2215) 104 MEQ/L 95-107 CARBON DIOXIDE (test code = 2206) 22 MEQ/L 19-31 CALCIUM (test code = 2209) 9.5 MG/DL 8.5-10.5 PROTEIN, TOTAL (test code = 2229) 7.5 G/DL 6.1-8.3 ALBUMIN (test code = 2201) 4.6 G/DL 3.5-5.2 CALC GLOBULIN (test code = 2240) 2.9 G/DL 1.9-3.7 CALC A/G RATIO (test code = 2234) 1.6 RATIO 1.0-2.6 BILIRUBIN, TOTAL (test code = 2207) 0.3 MG/DL See_Comment [Automated me ssage] The system which generated this result transmitted reference range: <=1.2. The reference range was not used to interpret this result as normal/abnormal. ALKALINE PHOSPHATASE (test code = 220) 99 U/L 40-123 AST (test code = 2218) 18 U/L 9-50 ALT (test code = 2219) 19 U/L 5-50 LIPID [id number] 04:13:15* Test Item Value Reference Range Interpretation [...] SPECIMENS. FOR MOREINFORMATION, SEE CLIENT ANNOUNCEMENT AT [email or web address] /CalcLDL-C RISK RATIO LDL/HDL (test code = 2238) 3.59 RATIO <3.55 H UNLESS OTHERW ISE INDICATED, ALL TESTING PERFORMED AT [facility] [address] [facility] [place] [address] BAND SCROLL SAW OPERATOR: WINNIE CURRAN M.D. CLIA NUMBER [id number] [facility] [place]. [id number] COMPREHENSIVE METABOLIC [id number] 00:00:00* Test Item Value Reference Range Interpretation Comme nts GLUCOSE (test code = 2216) 92 MG/DL BUN (test code = 2207) 11 MG/DL CREATININE (test code = 2214) 0.99 MG/DL eGFR (2020 CKD-EPI) (test co de = 73065) 89 ML/MIN/1.73 CALC BUN/CREAT (test code = 2235) 11 RATIO SODIUM (test code = 2231) 140 MEQ/L POTASSIUM (test code = 2228) 4.4 MEQ/L CHLORIDE (test code = 2215) 104 MEQ/L CARBON DIOXIDE (test code = 2206) 22 MEQ/L CALCIUM (test code = 2209) 9.5 MG/DL PROTEIN, TOTAL (test code = 2229) 7.5 G/DL ALBUMIN (test code = 2201) 4.6 G/DL CALC GLOBULIN (test code = 2240) 2.9 G/DL CALC A/G RATIO (test code = 2234) 1.6 RATIO BILIRUBIN, TOTAL (test code = 2207) 0.3 MG/DL ALKALINE PHOSPHATASE (test code = 2204) 99 U/L AST (test code = 2218) 18 U/L ALT (test code = 2219) 19 U/L Alfred LamaLIPID [id number] 00:00:00* Test Item Value Reference Range Interpretation Comme nts CHOLESTEROL (test code = 2210) 211 MG/DL TRIGLYCERIDES (test code = 2232) 187 MG/DL HDL CHOLESTEROL (test code = 2220) 39 MG/DL CALC LDL CHOL (test code = 2237) 140 MG/DL RISK RATIO LDL/HDL (test cod e = 2238) 3.59 RATIO Alfred LamaVITAMIN D, 25 [id number] 05:49:23* Test Item Value Reference Range Interpretation [...] 30-100 UNLESS OTHERWISE INDICATED, ALL TESTING PERFORMED [facility] [address] [place] [address] BAND SCROLL SAW OPERATOR: MANDY MCCAIN M.D. [place] NUMBER [id number] [facility] [place]. [id number] LIPID [id number] 04:37:17* Test Item Value Reference Range Interpretation [...] SPECIMENS. FOR MOREINFORMATION, SEE CLIENT ANNOUNCEMENT AT [email or web address]://[email or web address] /CalcLDL-C RISK RATIO LDL/HDL (test code = 2238) 3.23 RATIO <3.55 LIPID [id number] 00:00:00* Test Item Value Reference Range Interpretation Comme nts CHOLESTEROL (test code = 2210) 188 MG/DL TRIGLYCERIDES (test code = 2232) 89 MG/DL HDL CHOLESTEROL (test code = 2220) 40 MG/DL CALC LDL CHOL (test code = 2237) 129 MG/DL RISK RATIO LDL/HDL (test cod e = 2238) 3.23 RATIO Alfred LamaVITAMIN D, 25 [id number] 00:00:00* Test Item Value Reference Range Interpretation Comme nts VITAMIN D, 25 OH (test code = 4958) 25 NG/ML Aflred LamaVITAMIN D, 25 [id number] 03:07:18* Test Item Value Reference Range Interpretation [...] 30-100 UNLESS OTHERWISE INDICATED, ALL TESTING PERFORMED [facility] [address] [place] [address] BAND SCROLL SAW OPERATOR: MANDY MCCAIN M.D. [place] NUMBER [id number] [facility] [place]. [id number] VITAMIN D, 25 [id number] 00:00:00* Test Item Value Reference Range Interpretation Comme [facility] VITAMIN D, 25 OH (test code = 4958) 21 NG/ML Alfred Whipple [facility] W/AUTO DIFF WITH [id number] 03:39:29* Test Item Value Reference Range Interpretation [...] = 1065) 0.0 /100 WBC'S See_Comment [Automated messa ge] The system which generated this result [...] 0.00-0.10 ABS NUCLEATED RBCS (test code = 36755) 0.00 K/UL 0.00-0.11 LIPID [id number] 03:14:59* Test Item Value Reference Range Interpretation [...] SPECIMENS. FOR MOREINFORMATION, SEE CLIENT ANNOUNCEMENT AT [email or web address]://www.[email or web address] /CalcLDL-C RISK RATIO LDL/HDL (test code = 2238) 4.03 RATIO <3.55 H COMPREHENSIVE METABOLIC [id number] 03:14:59* Test Item Value Reference Range Interpretation Comme nts GLUCOSE (test code = 2217) 82 MG/DL 70-99 BUN (test code = 2208) 14 MG/DL 6-20 CREATININE (test code = 2214) 1.04 MG/DL 0.80-1.40 eGFR (2020 CKD-EPI) (test code = 25260) 84 ML/MIN/1.73 >60 CALC BUN/CREAT (test code = 2235) 13 RATIO 6-28 SODIUM (test code = 223) 141 MEQ/L 133-146 POTASSIUM (test code = 2228) 4.6 MEQ/L 3.5-5.4 CHLORIDE (test code = 2215) 104 MEQ/L 95-107 CARBON DIOXIDE (test code = 2206) 24 MEQ/L 19-31 CALCIUM (test code = 2209) 9.8 MG/DL 8.5-10.5 PROTEIN, TOTAL (test code = 2229) 7.7 G/DL 6.1-8.3 ALBUMIN (test code = 2201) 4.5 G/DL 3.5-5.2 CALC GLOBULIN (test code = 2240) 3.2 G/DL 1.9-3.7 CALC A/G RATIO (test code = 2234) 1.4 RATIO 1.0-2.6 BILIRUBIN, TOTAL (test code = 2207) 0.3 MG/DL See_Comment [Automated me ssage] The system which generated this result transmitted reference range: <=1.2. The reference range was not used to interpret this result as normal/abnormal. ALKALINE PHOSPHATASE (test code = 2203) 94 U/L 40-123 AST (test code = 2218) 18 U/L 9-50 ALT (test code = 221) 16 U/L 5-50 UNLESS OTHERWISE INDICATED, ALL TESTING PERFORMED [facility] [address] [place] [address] BAND SCROLL SAW OPERATOR: MANDY MCCAIN M.D. CLIA NUMBER [id number] [facility] [place]. [id number] CBC W/AUTO [id number] 00:00:00* Test Item Value Reference Range Interpretation Comme nts WBC (test code = 1001) 11.3 K/UL RBC (test code = 1002) 4.81 M/UL HEMOGLOBIN (test code = 1003) 14.5 G/DL HEMATOCRIT (test code = 1004) 42.3 % MCV (test code = 1005) 87.9 fL MCH (test code = 1006) 30.1 PG MCHC (test code = 1007) 34.3 G/DL RDW (test code = 1038) 13.1 % NEUTROPHILS (test code = 1008) 61.6 % LYMPHOCYTES (test code = 1010) 27.7 % MONOCYTES (test code = 1011) 8.0 % EOSINOPHILS (test code = 1012) 1.7 % BASOPHILS (test code = 1013) 0.6 % IMMATURE GRANULOCYTES (test code = 1036) 0.4 % NUCLEATED RBCS (test code = 1065) 0.0 /100WBC'S PLATELET COUNT (test code = 1015) 250 K/UL ABSOLUTE NEUTROPHILS (test c ode = 1066) 6.95 K/UL ABSOLUTE LYMPHOCYTES (test c ode = 1067) 3.12 K/UL ABSOLUTE MONOCYTES (test cod e = 1068) 0.90 K/UL ABSOLUTE EOSINOPHILS (test c ode = 1040) 0.19 K/UL ABSOLUTE BASOPHILS (test cod e = 1069) 0.07 K/UL ABS IMMATURE GRANULOCYTES (t est code = 1020) 0.05 K/UL ABS NUCLEATED RBCS (test cod e = 74015) 0.00 K/UL Alfred Whipple AustinLIPID [id number] 00:00:00* Test Item Value Reference Range Interpretation Comme nts CHOLESTEROL (test code = 2210) 229 MG/DL TRIGLYCERIDES (test code = 2232) 177 MG/DL HDL CHOLESTEROL (test code = 2220) 39 MG/DL CALC LDL CHOL (test code = 2237) 157 MG/DL RISK RATIO LDL/HDL (test cod e = 2238) 4.03 RATIO Alfred LamaCOMPREHENSIVE METABOLIC [id number] 00:00:00* Test Item Value Reference Range Interpretation Comme nts GLUCOSE (test code = 2217) 82 MG/DL BUN (test code = 2208) 14 MG/DL CREATININE (test code = 2214) 1.04 MG/DL eGFR (2020 CKD-EPI) (test co de = 56362) 84 ML/MIN/1.73 CALC BUN/CREAT (test code = 2235) 13 RATIO SODIUM (test code = 2231) 141 MEQ/L POTASSIUM (test code = 2228) 4.6 MEQ/L CHLORIDE (test code = 2215) 104 MEQ/L CARBON DIOXIDE (test code = 2206) 24 MEQ/L CALCIUM (test code = 2209) 9.8 MG/DL PROTEIN, TOTAL (test code = 2229) 7.7 G/DL ALBUMIN (test code = 2201) 4.5 G/DL CALC GLOBULIN (test code = 2240) 3.2 G/DL CALC A/G RATIO (test code = 2234) 1.4 RATIO BILIRUBIN, TOTAL (test code = 2207) 0.3 MG/DL ALKALINE PHOSPHATASE (test code = 2204) 94 U/L AST (test code = 2218) 18 U/L ALT (test code = 2219) 16 U/L Alfred F AustinCOMPREHENSIVE METABOLIC [id number] 00:00:00* Test Item Value Reference Range Interpretation Comme nts GLUCOSE (test code = 2217) 86 MG/DL BUN (test code = 2208) 11 MG/DL CREATININE (test code = 2214) 1.00 MG/DL eGFR AMER. (test cod e = 16032) 98 ML/MIN/1.73 eGFR NON- AMER. (test code = 31935) 84 ML/MIN/1.73 CALC BUN/CREAT (test code = 2235) 11 RATIO SODIUM (test code = 2231) 138 MEQ/L POTASSIUM (test code = 2228) 5.4 MEQ/L CHLORIDE (test code = 2215) 100 MEQ/L CARBON DIOXIDE (test code = 2206) 19 MEQ/L CALCIUM (test code = 2209) 9.2 MG/DL PROTEIN, TOTAL (test code = 2229) 7.6 G/DL ALBUMIN (test code = 2201) 3.9 G/DL CALC GLOBULIN (test code = 2240) 3.7 G/DL CALC A/G RATIO (test code = 2234) 1.1 RATIO BILIRUBIN, TOTAL (test code = 2207) 0.2 MG/DL ALKALINE PHOSPHATASE (test code = 2204) 93 U/L AST (test code = 2218) 17 U/L ALT (test code = 2219) 12 U/L Alfred LamaRHEUMATOID FACTOR, [id number] 00:00:00* Test Item Value Reference Range Interpretation Comme nts RHEUMATOID FACTOR, QUANT (te st code = 3502) <10 IU/ML Alfred LamaCBC W/AUTO [id number] 00:00:00* Test Item Value Reference Range Interpretation Comme nts WBC (test code = 1001) 12.0 K/UL RBC (test code = 1002) 4.11 M/UL HEMOGLOBIN (test code = 1003) 11.6 G/DL HEMATOCRIT (test code = 1004) 34.8 % MCV (test code = 1005) 84.7 fL MCH (test code = 1006) 28.2 PG MCHC (test code = 1007) 33.3 G/DL RDW (test code = 1038) 12.5 % NEUTROPHILS (test code = 1008) 71.8 % LYMPHOCYTES (test code = 1010) 19.4 % MONOCYTES (test code = 1011) 6.1 % EOSINOPHILS (test code = 1012) 2.3 % BASOPHILS (test code = 1013) 0.4 % PLATELET COUNT (test code = 1015) 377 K/UL Alfred Lama History and Physical Notes Date/Time Note Provider Source 2023-04-22 16:52:34 Lyric Edwards 1965, 58 year old, /White, male [id number] Admit type: DSU Attending Surgeon:Dr. Cecille MD Fellow Surgeon: Dr. Penny Reilly Chief Complaint: Blurry vision OD History of Present Illness: Causing difficulty Driving, Reading, Watching TV ROS: NA FH: NA Past Social Hx: NA No past medical history on file. No past surgical history on file. No current facility-administered medications for this encounter. Current Outpatient Medications Medication Sig Dispense Refill peg-electrolyte soln 236-22.74-6.74 -5.86 gram solution Take as directed before colonoscopy 4000 mL 0 gabapentin 300 mg capsule Take 300 mg by mouth in the morning and 300 mg at noon and 300 mg in the evening. Patient has no known allergies. Physical Exam: HEENT: see progress note Blood pressure 139/84, pulse 72, temperature 36.6 ?C (97.9 ?F), temperature source Oral, resp. rate 16, weight 106.6 kg (235 lb), SpO2 98 %. Bleeding tendencies: No Pertinent physical abnormalities: NA Impression/Diagnosis: Retinal detachment OD Treatment Plan/Procedure: SB/PPV/AFX/EL /GAS OD Anesthesia Type: GA Holdover from Clinic: [facility] patient: No Hemodialysis: NO Risks, benefits, and alternatives discussed with patient who voices understanding and wishes to proceed. - Risks/benefits/alternatives of surgery discussed with patient - It was explained to patient that as with any intraocular surgery, there is a risk of complications including but not limited to hemorrhage/bleeding in any part of the eye, infection, cataract formation, glaucoma, retinal detachment, retinal tears, need for additional surgeries, loss of vision and loss of the eye - informed consent was discussed with the patient, including: condition, proposed care, treatments and services, alternative forms of treatment, and risks of no treatment; details discussed around the procedures to be used, and the risks and hazards involved, potential benefits, and side effects of the patient s proposed care, treatment, and services; the likelihood of the patient achieving his/her goals; and any potential problems that might occur during recuperation - reasonable alternatives also discussed with the patient s proposed care, treatment, and services; the discussion encompasses risks, benefits, and side effects related to the alternative and risks related to not receiving the proposed care, treatment, and services - all concerns were addressed and all questions were answered - the patient voiced understanding and provided a written consent to proceed with surgery Consent obtained: Written consent was obtained from patient Physician: GINO Jordan ER INSERTING MACHINE OPERATOR Associated attestation - Sebastien Mata MD - 04/22/2023 7:47 PM PRIMER INSERTING MACHINE OPERATOR RETINA ATTENDING ATTESTATION: I personally examined the patient on 04/22/[address] Francis's findings, assessments, and plans and the indication for surgery and will proceed with surgery as planned. Sebastien Mata MD 04/22/2023 7:46 PM [facility] Notes Date/Time Note Provider Source Alfred Fonseca [facility]2024-03-15 14:25:31 Called pt and pt informed me that the pharmacy didn't have the 3ml bottle of Ketorolac but has the 5ml bottle so I have sent a new prescription for 5ml and informed pt. Galina Toro 07/16/2023 2:28 PM [id number] 12:22:25 [facility] calling back again for an update on medication. Please advise [facility] [id number] - [place] [facility] [id number] 13:50:[address] Cecille Su 07/15/2023 1:51 PM [facility]Sub[facility] [id number] 12:20:37 Lyric Edwards is a 58 year old male [phone] (home) Copied from [facility] #[id number]. Topic: Clinical - Medical Advice >> Jul 15, 2023 12:18 PM Patient Bar Host wrote: Pt states the manufacture of ketorolac 0.5 % ophthalmic solution is out of stock. Pt states he has been waiting on this medication. Can another medication be called in that is available. Please advise [facility] [id number] [address] [place] [facility]esaySub[facility] & [facility] [id number] 19:27:16 Pt to OR at this time via OR transporter in stretcher accompanied by with belongings. 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 Pt changing into gown. Family member reports will take home all belongings. [facility]2023-12-21 19:12:41 Nurse Report Report given to Maria C JORDAN. Chief complaint, assessment findings, infusion verify and orders reviewed. Plan of care discussed at bedside with patient and both nurses. Patient/family members verbalized understanding. Emeli Armstrong RN [facility] Emeli Armstrong [place] [address]-12-21 17:18:10 Optho updated this nurse on patient care plan. Patient will be posted for surgery today hoping for 1930. If not patient will be admitted and surgery performed in the morning. Patient advised on admit plan. Gown and socks at bedside. Patient arauz not want to change until it is necessary. at bedside. [address]12-21 16:10:00 Patient remains in the Eye room at this time. [address]12-21 16:00:00 Patient rounding complete at this time. Patient is laying in bed, NAD noted, VSS. Call light within reach, side rail up for safety, bed in low position and locked. Will continue to monitor the patient. Awaiting disposition. [address]12-21 15:14:21 Patient notified of diet order per provider. [address]12-21 13:10:07 Optho consult at bedside. Patient ambulatory to the eye room. [address]12-21 12:35:16 Optho returned page and aware of patient arrival ER INSERTING MACHINE OPERATOR [facility] [id number] 12:30:22 Lyric Edwards is a 58 year old male presenting to ED transferred from [place] accepted by optho for possible retinal detachment. Patient reports to R eye. Optho paged in triage. Patient to [place] for further eval ER INSERTING MACHINE OPERATOR Reyna Jones [facility]
--- NOTE | 2024-01-11 13:47 | ER ---
Nurse's Notes [facility] Name: Narciso Edwards Age: 58 yrs Sex: Male : 1965 Arrival Date: 01/11/2024 Time: 12:34 Bed 2 Private MD: Diagnosis: Left shoulder dislocation, moderate sedation, shoulder reduction by physician Presentation: 01/10 12:42 Chief complaint: Patient states: stepped off curb, landed on left shoulder,obvious iw deformity noted. Coronavirus screen: At this time, the client does not indicate any symptoms associated with coronavirus-19. 12:42 Method Of Arrival: Ambulatory iw 12:42 Acuity: NAIN 2 iw Historical: - Allergies: 12:43 No Known Allergies; iw - PMHx: 12:43 Hypercholesterolemia; Hypertensive disorder; iw - Immunization history:: Adult Immunizations up to date. - Infectious Disease History:: Denies. - Social history:: Smoking status: Patient denies any tobacco usage or history of. Screenin:47 [facility] ED Fall Risk Assessment (Adult) History of falling in the last 3 months, ld1 including since admission Yes- single mechanical fall (1 pt) Confusion or Disorientation No (0 pts) Intoxicated or Sedated No (0 pts) Impaired Gait No (0 pts) Mobility Assist Device Used No (0 pt) Altered Elimination No (0 pt) Score/Fall Risk Level 0 - 2 = Low Risk Oriented to surroundings, Maintained a safe environment, Educated pt \T\ family on fall prevention, incl call for assistance when getting out of bed, Assessed \T\ reinforced patient's understanding of fall precautions, Provided non-skid footwear, Hourly rounding (assess needs \T\ fall precautionary measures) done, Used ambulatory aids as needed (educated on \T\ assisted with), Used gait belt as appropriate. Abuse screen: Denies threats or abuse. Denies injuries from another. Nutritional screening: No deficits noted. Tuberculosis screening: No symptoms or risk factors identified. Assessment: 12:47 General: Appears distressed, uncomfortable, Behavior is anxious, crying, fussy. Pain: ld1 Complains of pain in left scapular area, anterior aspect of left shoulder and left axilla Pain does not radiate. Pain currently is 10 out of 10 on a pain scale. Quality of pain is described as throbbing, Pain began suddenly, Is continuous. Neuro: Level of Consciousness is awake, alert, obeys commands, Oriented to person, place, time, situation, Appropriate for age. Cardiovascular: Capillary refill < 3 seconds Patient's skin is warm and dry. Respiratory: Airway is patent Respiratory effort is even, unlabored. GI: Abdomen is round non-distended. : No signs and/or symptoms were reported regarding the genitourinary system. EENT: No signs and/or symptoms were reported regarding the EENT system. Derm: No signs and/or symptoms reported regarding the dermatologic system. Musculoskeletal: Reports pain in anterior aspect of left shoulder. 13:15 Reassessment: Patient appears in no apparent distress at this time. Patient and/or ld1 family updated on plan of care and expected duration. Pain level reassessed. ERP at bedside providing care. Left shoulder reduction beginning at this time. 13:45 Reassessment: Patient appears in no apparent distress at this time. Patient and/or ld1 family updated on plan of care and expected duration. Pain level reassessed. Patient is alert, oriented x 3, equal unlabored respirations, skin warm/dry/pink. Patient states symptoms have improved. 14:45 Reassessment: Patient appears in no apparent distress at this time. No changes from ld1 previously documented assessment. Patient and/or family updated on plan of care and expected duration. Pain level reassessed. Patient is alert, oriented x 3, equal unlabored respirations, skin warm/dry/pink. 15:42 Reassessment: No changes from previously documented assessment. Patient and/or family ld1 updated on plan of care and expected duration. Pain level reassessed. Patient states feeling better. Patient states symptoms have improved. Vital Signs: 12:42 BP 152 / 100; Pulse 98; Resp 18; Temp 98.1; Pulse Ox 97% on R/A; Weight 108.86 kg; iw Height 6 ft. 0 in. ; Pain 10/10; 13:00 BP 141 / 94; Pulse 72; Resp 18; Pulse Ox 96% ; ld1 14:00 BP 147 / 90; Pulse 72; Resp 17; Pulse Ox 95% on R/A; ld1 15:15 BP 121 / 80; Pulse 63; Resp 17; Pulse Ox 96% on R/A; ld1 12:42 Body Mass Index 32.55 (108.86 kg, 182.88 cm) iw 12:42 Pain Scale: Adult iw ED Course: 12:35 Patient arrived in ED. bd 12:36 Su Guerrero MD is Attending Physician. sp3 12:43 Triage completed. iw 12:43 Missed attempt(s): 20 gauge in right hand. Bleeding controlled, band aid applied, iw catheter tip intact. 12:44 Inserted saline lock: 20 gauge in right antecubital area, using aseptic technique. iw Flushed with 10 mL NS. 12:47 Goldie Blanco, RN is Primary Nurse. ld1 12:47 Patient has correct armband on for positive identification. Placed in gown. Bed in low ld1 position. Call light in reach. Side rails up X2. nuclear monitoring technician on. Pulse ox on. NIBP on. Door closed. Noise minimized. Warm blanket given. 13:02 Shoulder Left 2 View In Process Unspecified. EDMS 13:33 Shoulder 1 View In Process Unspecified. EDMS 13:39 Assist provider with reduction of left shoulder using manipulation, Set up for ld1 procedure. Performed by Su Guerrero MD Patient tolerated well. 15:40 IV discontinued, intact, bleeding controlled, No redness/swelling at site. ld1 Administered Medications: 12:43 Drug: HYDROmorphone IVP 1 mg IVP once Route: IVP; Site: right antecubital; iw 12:53 Follow up: Response: No adverse reaction ld1 12:43 Drug: Ondansetron IVP 4 mg IVP once; over 2 minutes Route: IVP; Site: right antecubital;iw 12:53 Follow up: Response: No adverse reaction ld1 12:53 Drug: HYDROmorphone IVP 1 mg IVP once Route: IVP; Site: right antecubital; ld1 13:30 Follow up: Response: No adverse reaction ld1 13:16 Drug: Etomidate IVP 10 mg IVP once; Under physician direction only Route: IVP; Site: ld1 right antecubital; 13:38 Follow up: Response: No adverse reaction; Pain is unchanged, physician notified ld1 13:18 Drug: Etomidate IVP 5 mg IVP once Route: IVP; Site: right antecubital; ld1 13:38 Follow up: Response: No adverse reaction; Pain is unchanged, physician notified ld1 13:20 Drug: Etomidate IVP 5 mg IVP once Route: IVP; Site: right antecubital; ld1 13:39 Follow up: Response: No adverse reaction; Pain is unchanged, physician notified; RASS: ld1 Restless (+1) 13:24 Drug: Etomidate IVP 10 mg IVP once Route: IVP; Site: right antecubital; ld1 13:39 Follow up: Response: No adverse reaction; RASS: Drowsy (-1) ld1 Medication: 12:47 VIS not applicable for this client. ld1 Outcome: 13:46 Discharge ordered by . sp3 15:39 Patient left the ED. iw 15:42 Discharged to home via wheelchair, with family, ld1 15:42 Condition: stable 15:42 Discharge instructions given to patient, family, Instructed on discharge instructions, follow up and referral plans. medication usage, Demonstrated understanding of instructions, follow-up care, medications, Prescriptions given X 1, Signatures: Dispatcher [employer] EDMS Ashanti Long Irene, RN RN iw Goldie Blanco RN RN ld1 Su Guerrero MD MD sp3
--- NOTE | 2024-01-11 13:47 | EDPHYS ---
Physician Documentation [facility] Name: Narciso Edwards Age: 58 yrs Sex: Male : 1965 Arrival Date: 01/11/2024 Time: 12:34 Bed 2 Private MD: ED Physician Su Guerrero HPI: 01/10 12:39 This 58 yrs old Male presents to ER via Unassigned with complaints of left shoulder sp3 dislocation. 12:39 58-year-old male with history of hypertension hyperlipidemia no prior orthopedic sp3 surgery now presents to the ED with a mechanical fall with left shoulder dislocation complaint. Patient can still move his fingers and has normal function in his hand. No other injury including head, neck, remainder of the body. Review of systems negative for any other pain except for shoulder.. Historical: - Allergies: 12:43 No Known Allergies; iw - PMHx: 12:43 Hypercholesterolemia; Hypertensive disorder; iw - Immunization history:: Adult Immunizations up to date. - Infectious Disease History:: Denies. - Social history:: Smoking status: Patient denies any tobacco usage or history of. ROS: 12:40 Constitutional: Negative for fever, chills, and weight loss, Eyes: Negative for injury, sp3 pain, redness, and discharge, ENT: Negative for injury, pain, and discharge, Neck: Negative for injury, pain, and swelling, Cardiovascular: Negative for chest pain, palpitations, and edema, Respiratory: Negative for shortness of breath, cough, wheezing, and pleuritic chest pain, Abdomen/GI: Negative for abdominal pain, nausea, vomiting, diarrhea, and constipation, Back: Negative for injury and pain, Skin: Negative for injury, rash, and discoloration, Neuro: Negative for headache, weakness, numbness, tingling, and seizure, Psych: Negative for depression, anxiety, suicide ideation, homicidal ideation, and hallucinations, Allergy/Immunology: Negative for hives, rash, and allergies, Endocrine: Negative for neck swelling, polydipsia, polyuria, polyphagia, and marked weight changes, Hematologic/Lymphatic: Negative for swollen nodes, abnormal bleeding, and unusual bruising, 12:40 All other systems are negative, Exam: 12:40 Constitutional: This is a well developed, well nourished patient who is awake, alert, sp3 and in no acute distress. Head/Face: Normocephalic, atraumatic. Eyes: Pupils equal round and reactive to light, extra-ocular motions intact. Lids and lashes normal. Conjunctiva and sclera are non-icteric and not injected. Cornea within normal limits. Periorbital areas with no swelling, redness, or edema. Neck: Trachea midline, no thyromegaly or masses palpated, and no cervical lymphadenopathy. Supple, full range of motion without nuchal rigidity, or vertebral point tenderness. No Meningismus. Cardiovascular: Regular rate and rhythm with a normal S1 and S2. No gallops, murmurs, or rubs. Normal PMI, no JVD. No pulse deficits. Respiratory: Lungs have equal breath sounds bilaterally, clear to auscultation and percussion. No rales, rhonchi or wheezes noted. No increased work of breathing, no retractions or nasal flaring. Abdomen/GI: Soft, non-tender, with normal bowel sounds. No distension or tympany. No guarding or rebound. No evidence of tenderness throughout. Back: No spinal tenderness. No costovertebral tenderness. Full range of motion. Skin: Warm, dry with normal turgor. Normal color with no rashes, no lesions, and no evidence of cellulitis. Neuro: Awake and alert, GCS 15, oriented to person, place, time, and situation. Cranial nerves II-XII grossly intact. Motor strength 5/5 in all extremities. Sensory grossly intact. Cerebellar exam normal. Normal gait. Psych: Awake, alert, with orientation to person, place and time. Behavior, mood, and affect are within normal limits. 12:40 Musculoskeletal/extremity: Acromial drop-off noted with anterior fullness consistent with shoulder dislocation. Distal neurovascular exam in the hand is normal. . Vital Signs: 12:42 BP 152 / 100; Pulse 98; Resp 18; Temp 98.1; Pulse Ox 97% on R/A; Weight 108.86 kg; iw Height 6 ft. 0 in. ; Pain 10/10; 13:00 BP 141 / 94; Pulse 72; Resp 18; Pulse Ox 96% ; ld1 14:00 BP 147 / 90; Pulse 72; Resp 17; Pulse Ox 95% on R/A; ld1 15:15 BP 121 / 80; Pulse 63; Resp 17; Pulse Ox 96% on R/A; ld1 12:42 Body Mass Index 32.55 (108.86 kg, 182.88 cm) iw 12:42 Pain Scale: Adult iw Procedures: 13:43 Reduction: of the left shoulder, using traction, Immobilized with sling, Patient sp3 tolerated well. Post reduction film - reveals normal alignment. Moderate sedation: Pre-procedure assessment: the patient has been NPO 4 hour(s) prior to arrival, ASA physical classification: II - mild/mod systemic disease that does not interfere with daily routines, Airway assessment: able to hyperextend neck, Mallampati classification of tongue size: I - faucial pillars, soft palate, and uvula can be fully visualized, Monitoring during procedure: satellite project site monitor, continuous pulse oximetry, nurse at bedside at all times, Medications employed: Etomidate, 30 mg(s), Patient required 310 mg boluses of etomidate for adequate sedation to last entire procedure., Post-procedure assessment: the patient is moderately sedated, Tovar sedation score: Respiratory status: even and unlabored, a reversal agent was not used. MDM: 12:36 Patient medically screened. sp3 12:41 Data reviewed: vital signs, nurses notes, radiologic studies. ED course: 58-year-old sp3 male with left shoulder dislocation. X-ray pending. Once no fracture verified, we will relocate under procedural sedation using etomidate. Consents pending. Dilaudid and Zofran IV for pain control. Differential diagnosis includes shoulder dislocation versus fracture versus both versus other orthopedic abnormality.. 13:45 ED course: Successful reduction of left shoulder using traction countertraction and 30 sp3 mg of etomidate total. Post reduction x-ray demonstrate successful relocation. Patient now fully recovered from moderate sedation. We will safely discharge patient home on tramadol and follow-up with orthopedics.. 01/10 13:02 Order name: Shoulder Left 2 View; Complete Time: 14:08 EDMS 01/10 13:33 Order name: Shoulder 1 View; Complete Time: 14:08 EDMS 01/10 12:37 Order name: NPO; Complete Time: 12:39 sp3 01/10 12:37 Order name: IV Saline Lock; Complete Time: 12:39 sp3 01/10 12:37 Order name: Monitor; Complete Time: 12:40 sp3 01/10 12:37 Order name: Pulse Ox Monitoring; Complete Time: 12:40 sp3 01/10 12:37 Order name: Oxygen Per Protocol; Complete Time: 12:40 sp3 01/10 12:37 Order name: Conscious Sedation; Complete Time: 13:36 sp3 01/10 12:38 Order name: Vital Signs; Complete Time: 12:43 sp3 Administered Medications: 12:43 Drug: HYDROmorphone IVP 1 mg IVP once Route: IVP; Site: right antecubital; iw 12:53 Follow up: Response: No adverse reaction ld1 12:43 Drug: Ondansetron IVP 4 mg IVP once; over 2 minutes Route: IVP; Site: right antecubital;iw 12:53 Follow up: Response: No adverse reaction ld1 12:53 Drug: HYDROmorphone IVP 1 mg IVP once Route: IVP; Site: right antecubital; ld1 13:30 Follow up: Response: No adverse reaction ld1 13:16 Drug: Etomidate IVP 10 mg IVP once; Under physician direction only Route: IVP; Site: ld1 right antecubital; 13:38 Follow up: Response: No adverse reaction; Pain is unchanged, physician notified ld1 13:18 Drug: Etomidate IVP 5 mg IVP once Route: IVP; Site: right antecubital; ld1 13:38 Follow up: Response: No adverse reaction; Pain is unchanged, physician notified ld1 13:20 Drug: Etomidate IVP 5 mg IVP once Route: IVP; Site: right antecubital; ld1 13:39 Follow up: Response: No adverse reaction; Pain is unchanged, physician notified; RASS: ld1 Restless (+1) 13:24 Drug: Etomidate IVP 10 mg IVP once Route: IVP; Site: right antecubital; ld1 13:39 Follow up: Response: No adverse reaction; RASS: Drowsy (-1) ld1 Disposition Summary: 01/11/24 13:46 Discharge Ordered Notes: Location: Home sp3 Condition: Stable sp3 Diagnosis - Left shoulder dislocation, moderate sedation, shoulder reduction by physician sp3 Followup: sp3 - With: Private Physician - When: Upon discharge from the Emergency Department - Reason: Continuance of care Discharge Instructions: - Discharge Summary Sheet sp3 - Shoulder Dislocation sp3 - How to Use a Sling sp3 Forms: - Medication Reconciliation Form sp3 - Antibiotic Education sp3 - Prescription Opioid Use sp3 - Patient Portal Instructions sp3 - Leadership Thank You Letter sp3 Prescriptions: - Tramadol 50 mg Oral Tablet - take 1 tablet ORAL route every 8 hours as needed; 12 tablet; Refills: 0, sp3 Product Selection Permitted Signatures: Dispatcher [employer] EDCarmen Velazquez RN RN iw Goldie Blanco RN RN ld1 Su Guerrero MD MD sp3 Corrections: (The following items were deleted from the chart) 13:02 12:36 Shoulder Right 2 View+[email or web address] ordered. EDMS EDMS
--- NOTE | 2024-01-11 13:51 | RAD REPORT ---
EXAM DESCRIPTION: RAD - Shoulder Left 2 View - 01/11/2024 1:01 pm CLINICAL HISTORY: PAIN COMPARISON: No comparisons FINDINGS: Anterior dislocation of the humeral head is seen. Humeral head lies in a subcortical white location. Mild cortical irregularity seen the anterior margin of the glenoid.
--- NOTE | 2024-01-11 14:04 | RAD REPORT ---
EXAM DESCRIPTION: RAD - Shoulder 1 View - 01/11/2024 1:33 pm CLINICAL HISTORY: POST REDUCE COMPARISON: No comparisons FINDINGS: Since the prior study, the previously noted dislocation has been reduced. No gross fractur e appreciated. Probable Hill-Sachs deformity seen in the humeral head.
[2024-01-11 15:44] VITALS: BP 152/100; TEMP 98.1; O2SAT 97
== END 2024-01-11 15:39 | disposition home or self-care (01) ==
LOC: ER 12:34
PROC: 0RSKXZZ Reposition Left Shoulder Joint, External Approach (ICD-10-PCS; principal; 2024-01-11)
DX: S43.005A Unspecified dislocation of left shoulder joint, initial encounter (principal)
CPT/HCPCS: 73020; 96374; 96375; 99285; J1170; J2405